=== PATIENT | female | born 1965 | race Caucasian/White ===

== ENCOUNTER 2017-05-23 08:36 | Day surgery (SDC) | payer OTHER ==
[~2017-05-23] VITALS: Ht 162.6 cm; Wt 102.1 kg
[~2017-05-23 08:36] MED LIST: AMIT50 PO; AMLO5 PO; ASPI81CH PO; ATOR10 PO; BACL10 PO; BUTASPCAFT PO; CHOL10002 PO; CLON1 PO; CYAN1000 PO; ESOM20 PO; FISH OIL 1,0001 EAC1 PO; FISH OIL 1,2001 EACH PO; FOLI1 PO; HYDCHL25 PO; K-Tab10 MEQ PO; LISI20 PO; MAGGLU250 PO; METO100 PO; METO50ER PO; Magnesium500 MG PO; Mobic15 MG PO; NAPR375 PO; Nexium40 MG PO; ONDA8 PO; ONDA8ODT MM; OXYGEN; Omeprazole20 M1 PO; PANT40 PO; POTASSIUM GLUCONATE PO; POTCHL10ER PO; RABE20 PO; SERT100 PO; SERT25 PO; SIMV10 PO; SUCR1SU PO; Sucralfate1 GM PO; TOPI50 PO; VARE1 PO; Zestril40 MG PO
[2018-02-24] MEDS ORDERED: Percocet 5-3251 EACH PO (15:19)
[2018-02-24] MEDS ORDERED: Cipro500 MG PO (16:10)
[2018-03-13] MEDS ORDERED: Imitrex50 MG PO (09:37)
[2018-03-13] MEDS ORDERED: PANT40 PO (09:42)
[2018-03-14] MEDS ORDERED: TOPI50 PO (11:10)
[2018-03-14] MEDS ORDERED: Hair, Skin & N1 EACH PO (11:13)
[2018-03-14] MEDS ORDERED: CHOL10002 PO (11:13)
[2018-03-14] MEDS ORDERED: HEARTBURN RELI150 MG PO (11:16)
== END 2017-05-23 23:01 | disposition home or self-care (01) ==
LOC: ORSCMMR 08:36
PROVIDERS: Internal Medicine Gastroenterology
PROC: 0DB68ZX Excision of Stomach, Via Natural or Artificial Opening Endoscopic, Diagnostic (ICD-10-PCS; principal; 2017-05-23 10:00)
DX: K29.70 Gastritis, unspecified, without bleeding (principal); K44.9 Diaphragmatic hernia without obstruction or gangrene; F32.9 Major depressive disorder, single episode, unspecified; E78.00 Pure hypercholesterolemia, unspecified; I10 Essential (primary) hypertension; Z79.899 Other long term (current) drug therapy
CPT/HCPCS: 88305; 88342; J7120

== ENCOUNTER 2018-06-10 13:44 | Emergency (ER) | payer OTHER ==
[~2018-06-10] VITALS: Ht 162.6 cm; Wt 106.6 kg
[~2018-06-10 13:44] MED LIST changes: +Cipro500 MG PO; +HEARTBURN RELI150 MG PO; +Hair, Skin & N1 EACH PO; +Imitrex50 MG PO; +Percocet 5-3251 EACH PO
[2018-06-10 14:16] LABS: BASOPHILS ABSOLUTE AUTO 0.07 K/mm3 (0.00-0.23); BASOPHILS PERCENT AUTO 1 % (0-2); EOSINOPHILS ABSOLUTE AUTO 0.31 K/mm3 (0.00-0.68); EOSINOPHILS PERCENT AUTO 4 % (0-6); Hematocrit 44.2 % (33.0-51.0); Hemoglobin 14.7 g/dL (11.5-16.0); IMMATURE GRAN ABSOLUTE AUTO 0.02 K/mm3 (0.00-0.10); IMMATURE GRAN PERCENT AUTO 0 % (0-1); LYMPHOCYTES ABSOLUTE AUTO 2.29 K/mm3 (0.84-5.20); LYMPHOCYTES PERCENT AUTO 26 % (21-46); MONOCYTES ABSOLUTE AUTO 0.71 K/mm3 (0.16-1.47); MONOCYTES PERCENT AUTO 8 % (4-13); Mean Corpuscular HGB 30.7 pg (26.0-34.0); Mean Corpuscular HGB Conc 33.3 g/dL (31.5-36.5); Mean Corpuscular Volume 92 fL (80-100); Mean Platelet Volume 9.8 fL (9.1-12.4); NEUTROPHILS ABSOLUTE AUTO 5.44 K/mm3 (1.96-9.15); NEUTROPHILS PERCENT AUTO 62 % (41-73); Platelet Count 287 K/mm3 (150-400); RDW Coefficient Variation 12.9 % (11.7-14.2); RDW Standard Deviation 43.8 fL (35.1-46.3); Red Blood Cell Count 4.79 M/mm3 (3.80-5.20); White Blood Cell Count 8.84 K/mm3 (4.00-11.30)
[2018-06-10 15:03] LABS: Source, Urine Clean Catch
[2018-06-10 15:08] LABS: Alanine Aminotransfer (ALT/SGP 19 U/L (12-78); Albumin/Globulin Ratio 0.8 (0.8-1.8); Alk Phos 104 U/L (50-136); Anion Gap 9 mmol/L (6-16); Aspartate Aminotrans (AST/SGOT 12 U/L (12-37); Bilirubin, Total 0.3 mg/dL (0.1-1.0); Blood Urea Nitrogen 9 mg/dL (8-24); Bun/Creatinine Ratio 10.4 (12.0-20.0); CO2, Blood 28 mmol/L (21-32); Calcium, Blood 8.5 mg/dL (8.5-10.1); Chloride, Blood 107 mmol/L (98-108); Creatinine, Blood 0.87 mg/dL (0.40-1.00); Globulin, Blood 3.7 g/dL (2.2-4.0); Glomerular Filtration Rate >60 (60-); Glucose, Blood 141 mg/dL (70-99); Potassium, Blood 3.2 mmol/L (3.5-5.5); Sodium, Blood 144 mmol/L (136-145); Total Protein, Blood 6.7 g/dL (6.4-8.2)
[2018-06-10 15:10] LABS: Bilirubin, Urine Neg (Neg); Blood, Urine Neg (Neg); Glucose Qualitative, Urine Neg (Neg); Ketones, Urine Neg (Neg); Leukocyte Esterase, Urine 2+ (Neg); Nitrite, Urine Neg (Neg); Protein, Urine Neg (Neg); Urobilinogen, Urine NORM (Normal)
[2018-06-10 15:26] LABS: Appearance, Urine Clear (Clear); Color, Urine Yellow (P-Yellow)
[2018-06-10 15:31] LABS: Bacteria Few /hpf; Red Blood Cells, Urine 0-2 /hpf (0-2); Squamous Epithelial Cells Few /hpf (Few)
[2018-06-10 15:44] LABS: Troponin I <0.015 ng/mL (0.000-0.040)
[2018-06-10 15:46] LABS: Thyroid Stimulating Hormone 0.643 uIU/mL (0.360-4.800)
== END 2018-06-10 16:18 | disposition home or self-care (01) ==
LOC: ER 13:44
PROVIDERS: Emergency Medicine
DX: E11.65 Type 2 diabetes mellitus with hyperglycemia (principal); I10 Essential (primary) hypertension; G43.909 Migraine, unspecified, not intractable, without status migrainosus; Z88.0 Allergy status to penicillin; Z88.5 Allergy status to narcotic agent; Z79.899 Other long term (current) drug therapy; Z87.891 Personal history of nicotine dependence
CPT/HCPCS: 36415; 80053; 81001; 82947; 83690; 84443; 84484; 85025; 87086; 99284

== ENCOUNTER → 2018-10-05 | Outpatient (CLI) | payer OTHER | END | disposition home or self-care (01) | LOC: LAB 18:02 → LAB SHORT 18:02 | DX: N39.0 Urinary tract infection, site not specified (principal) | CPT/HCPCS: 87077; 87086; 87186 ==

== ENCOUNTER → 2018-10-18 | Outpatient (CLI) | payer OTHER | END | disposition home or self-care (01) | LOC: LAB UCHC 13:11 → LAB SHORT 13:11 | DX: R35.0 Frequency of micturition (principal) | CPT/HCPCS: 87070; 87086; 87205 ==

== ENCOUNTER 2019-08-28 12:30 | Emergency (ER) | payer OTHER ==
[~2019-08-28] VITALS: Ht 162.6 cm; Wt 104.3 kg
[~2019-08-28 12:30] MED LIST changes: +THERA-D2000 UNIT PO
[2019-08-28] MEDS ORDERED: Atarax10 MG PO (12:56)
[2019-08-28] MEDS ORDERED: FAMO10 PO (12:56)
[2019-08-28 13:31] LABS: International Normalized Ratio 0.91; Prothrombin Time Results 9.8 Sec (9.7-11.5)
[2019-08-28 13:47] LABS: Alanine Aminotransfer (ALT/SGP 22 U/L (12-78); Albumin, Blood 3.2 g/dL (3.4-5.0); Albumin/Globulin Ratio 0.8 (0.8-1.8); Alk Phos 126 U/L (50-136); Anion Gap 6 mmol/L (6-16); Aspartate Aminotrans (AST/SGOT 18 U/L (12-37); Bilirubin, Total 0.2 mg/dL (0.1-1.0); Blood Urea Nitrogen 7 mg/dL (8-24); CO2, Blood 26 mmol/L (21-32); Calcium, Blood 8.8 mg/dL (8.5-10.1); Chloride, Blood 111 mmol/L (98-108); Creatinine, Blood 0.77 mg/dL (0.40-1.00); Glomerular Filtration Rate >60 (60-); Glucose, Blood 107 mg/dL (70-99); Potassium, Blood 3.6 mmol/L (3.5-5.5); Sodium, Blood 143 mmol/L (136-145); Total Protein, Blood 7.2 g/dL (6.4-8.2); Troponin I <0.015 ng/mL (0.000-0.040)
[2019-08-28 14:05] LABS: BASOPHILS ABSOLUTE AUTO 0.07 K/mm3 (0.00-0.23); BASOPHILS PERCENT AUTO 1 % (0-2); EOSINOPHILS ABSOLUTE AUTO 0.25 K/mm3 (0.00-0.68); EOSINOPHILS PERCENT AUTO 3 % (0-6); Hematocrit 48.3 % (33.0-51.0); Hemoglobin 15.8 g/dL (11.5-16.0); IMMATURE GRAN ABSOLUTE AUTO 0.02 K/mm3 (0.00-0.10); IMMATURE GRAN PERCENT AUTO 0 % (0-1); LYMPHOCYTES ABSOLUTE AUTO 2.66 K/mm3 (0.84-5.20); LYMPHOCYTES PERCENT AUTO 29 % (21-46); MONOCYTES ABSOLUTE AUTO 0.79 K/mm3 (0.16-1.47); MONOCYTES PERCENT AUTO 9 % (4-13); Mean Corpuscular HGB Conc 32.7 g/dL (31.5-36.5); Mean Corpuscular Volume 92 fL (80-100); Mean Platelet Volume 10.3 fL (9.1-12.4); NEUTROPHILS ABSOLUTE AUTO 5.37 K/mm3 (1.96-9.15); NEUTROPHILS PERCENT AUTO 59 % (41-73); Platelet Count 281 K/mm3 (150-400); RDW Coefficient Variation 12.8 % (11.7-14.2); RDW Standard Deviation 43.4 fL (35.1-46.3); Red Blood Cell Count 5.27 M/mm3 (3.80-5.20); White Blood Cell Count 9.16 K/mm3 (4.00-11.30)
[2019-08-28] MEDS ORDERED: Toprol Xl25 MG PO (15:43)
== END 2019-08-28 15:48 | disposition home or self-care (01) ==
LOC: ER 12:30
PROVIDERS: Physician Assistant
DX: R07.9 Chest pain, unspecified (principal); R00.2 Palpitations; I10 Essential (primary) hypertension; F17.290 Nicotine dependence, other tobacco product, uncomplicated; Z88.0 Allergy status to penicillin; Z88.5 Allergy status to narcotic agent; Z79.899 Other long term (current) drug therapy
CPT/HCPCS: 36415; 71046; 80053; 84484; 85025; 85610; 93005; 93010; 96374; 99285-25

== ENCOUNTER → 2019-11-29 | Outpatient (CLI) | payer OTHER ==
[~2019-11-29] MED LIST changes: +Atarax10 MG PO; +FAMO10 PO; +METO100ER; +Toprol Xl25 MG PO
== END | disposition home or self-care (01) ==
LOC: LAB UCHC 11:35 → LAB SHORT 11:35
DX: N39.0 Urinary tract infection, site not specified (principal)
CPT/HCPCS: 87086

== ENCOUNTER 2020-06-06 11:55 | Emergency (ER) | payer OTHER ==
[~2020-06-06] VITALS: Ht 162.6 cm; Wt 104.3 kg
[2020-06-06] MEDS ORDERED: PRAMIPEXOLE D0.25 M1 PO (12:42)
[2020-06-06] MEDS ORDERED: Bactrim Ds Tab1 EACH PO (13:35)
== END 2020-06-06 14:00 | disposition home or self-care (01) ==
LOC: ER 11:55
DX: L02.414 Cutaneous abscess of left upper limb (principal); F17.290 Nicotine dependence, other tobacco product, uncomplicated; Z79.899 Other long term (current) drug therapy
CPT/HCPCS: 10060; 87070; 87075; 87077; 87186; 87205; 99283-25

== ENCOUNTER 2021-05-19 08:00 | Day surgery (SDC) | payer OTHER ==
[~2021-05-19] VITALS: Ht 162.6 cm; Wt 109.5 kg
[~2021-05-19 08:00] MED LIST changes: +Bactrim Ds Tab1 EACH PO; -METO100ER; +METO100ER PO; +PRAMIPEXOLE D0.25 M1 PO
--- NOTE | 2021-05-19 09:36 | NUR ---
Ambulatory in Day Surgery Surgical site prepped with 2% Chlorhexidine cloth wipe. Estrella Paws warming gown applied. History, Chart, Medications and Allergies reviewed before start of procedure.Lungs clear T/O to Auscultation. Patient confirms NPO status and agrees with scheduled surgery. Pre-Op teaching done. Pt verbalizes understanding. Patient States Post-Procedure ride home has been arranged. Patient reports completing Chlorhexadine shower X2 prior to admission to hospital.
--- NOTE | 2021-05-19 13:45 | NUR ---
PT ARRIVED TO UNIT FROM PACU. VSS. ON 3L 02, LUNGS SOUND CLEAR W/DIM BASES. RESPIRATIONS E/U. HRR. PT ABLE TO WIGGLE TOES. JONAH WRAP TO LLE CDI. POLAR PACK IN PLACE. CALL LIGHT IN REACH.
--- NOTE | 2021-05-19 15:51 | NUR ---
THERAPY IN TO WORK W/PT.
--- NOTE | 2021-05-19 16:57 | NUR ---
turned over care to ANUP Burton RN
--- NOTE | 2021-05-19 18:07 | NUR ---
ASSUMED CARE OF PATIENT AT 1730. PATIENT CURRENTLY SITTING UP IN CHAIR EATING HER MEAL. NO SIGNS OR SYMPTOMS ACUTE DISTRESS NOTED. CALL LIGHT AND WATER IN EASY REACH. ABLE TO MAKE NEEDS AND WANTS KNOWN. WILL MONITOR.
[2021-05-20 04:50] LABS: BASOPHILS ABSOLUTE AUTO 0.04 K/mm3 (0.00-0.23); BASOPHILS PERCENT AUTO 0 % (0-2); EOSINOPHILS ABSOLUTE AUTO 0.03 K/mm3 (0.00-0.68); EOSINOPHILS PERCENT AUTO 0 % (0-6); Hematocrit 37.6 % (33.0-51.0); Hemoglobin 12.4 g/dL (11.5-16.0); IMMATURE GRAN ABSOLUTE AUTO 0.07 K/mm3 (0.00-0.10); IMMATURE GRAN PERCENT AUTO 1 % (0-1); LYMPHOCYTES ABSOLUTE AUTO 1.82 K/mm3 (0.84-5.20); LYMPHOCYTES PERCENT AUTO 12 % (21-46); MONOCYTES ABSOLUTE AUTO 1.42 K/mm3 (0.16-1.47); MONOCYTES PERCENT AUTO 9 % (4-13); Mean Corpuscular Volume 94 fL (80-100); Mean Platelet Volume 10.1 fL (9.1-12.4); NEUTROPHILS ABSOLUTE AUTO 11.71 K/mm3 (1.96-9.15); NEUTROPHILS PERCENT AUTO 78 % (41-73); Platelet Count 236 K/mm3 (150-400); RDW Standard Deviation 44.7 fL (35.1-46.3); White Blood Cell Count 15.09 K/mm3 (4.00-11.30)
--- NOTE | 2021-05-20 04:53 | NUR ---
SHIFT SUMMARY: PT POD#1 FOR A LEFT TKA. AQUACEL AND JONAH WRAP C/D/I WITH POLAR PACK IN PLACE. PAIN BEING MANAGED WITH 5MG OXY AND SCHEDULED TORADOL+TYLENOL. PT AMBULATING WELL WITH FWW/GB. PT TOLERATING PO-DENIES N/V. OOB TO BATHROOM SEVERAL TIMES AND VOIDING WELL. PLAN FOR PHYSICAL THERAPY TODAY AND POSSIBLE DISCHARGE HOME.
[2021-05-20 05:14] LABS: Calcium, Blood 8.4 mg/dL (8.5-10.1); Potassium, Blood 3.7 mmol/L (3.5-5.5)
[2021-05-20] MEDS ORDERED: Percocet 5-3251 EACH PO (08:32)
[2021-05-20] MEDS ORDERED: ASPI81CH PO (08:33)
--- NOTE | 2021-05-20 08:57 | NUR ---
05/20/21 0857 Essence Carrasco VERIFICATIONS: EDIT CHART.
--- NOTE | 2021-05-20 12:40 | NUR ---
DISCHARGE PT LEFT VIA WHEELCHAIR. PT CLEARED THERAPY, NO LIGHT HEADEDNESS WITH AMBULATION. DRESSING CDI. EXTRA AQUACELS GIVEN TO PATIENT. PRESCRIPTIONS PICKED UP BY BEFORE DISCHARGE. ALL INSTRUCTIONS GONE OVER WITH PATIENT. DECLINED FURTHER QUESTIONS. IV REMOVED PRIOR TO DISCHARGE
== END 2021-05-20 11:30 | disposition home or self-care (01) ==
LOC: ORSCMMR 08:00 → ORD 09:30 → SURS 13:26 → ORSCMMR 05-20 11:30 → ORD 05-26 09:45
PROVIDERS: Orthopaedic Surgery
PROC: 0SRD0JA Replacement of Left Knee Joint with Synthetic Substitute, Uncemented, Open Approach (ICD-10-PCS; principal; 2021-05-19 09:30)
DX: M17.12 Unilateral primary osteoarthritis, left knee (principal); I10 Essential (primary) hypertension; G47.33 Obstructive sleep apnea (adult) (pediatric); Z87.891 Personal history of nicotine dependence; K21.9 Gastro-esophageal reflux disease without esophagitis; E66.01 Morbid (severe) obesity due to excess calories; Z68.41 Body mass index [BMI] 40.0-44.9, adult; Z79.899 Other long term (current) drug therapy
CPT/HCPCS: 36415; 73560-LT; 80048; 85025; 97110; 97110-CQ; 97116; 97116-CQ; 97162; A9270; C1776; J0171; J0690; J0735; J1100; J1170; J1200; J1885; J2250; J2370; J2405; J2704; J2710; J2795; J3010; J3370; J7120

== ENCOUNTER → 2021-05-29 | Outpatient (CLI) | payer OTHER | END | disposition home or self-care (01) | LOC: LAB SHORT 16:24 | DX: N39.0 Urinary tract infection, site not specified (principal) | CPT/HCPCS: 87077; 87086; 87186 ==

== ENCOUNTER → 2021-07-22 | Outpatient (CLI) | payer OTHER ==
[2021-07-23 09:18] LABS: Candida species (DNA Probe) Negative (NEGATIVE); G. vaginalis (DNA Probe) Positive (NEGATIVE); T. vaginalis (DNA Probe) Negative (NEGATIVE)
== END | disposition home or self-care (01) ==
LOC: LAB 14:25 → LAB SHORT 14:25
PROVIDERS: Nurse Practitioner
DX: N89.8 Other specified noninflammatory disorders of vagina (principal); R82.998 Other abnormal findings in urine
CPT/HCPCS: 87086; 87480; 87510; 87660

== ENCOUNTER → 2021-10-26 | Outpatient (CLI) | payer OTHER | END | disposition home or self-care (01) | LOC: LAB 14:13 → LAB SHORT 14:13 | DX: R30.9 Painful micturition, unspecified (principal) | CPT/HCPCS: 87077; 87086; 87186 ==

== ENCOUNTER → 2022-03-16 | Outpatient (CLI) | payer OTHER ==
[2022-03-17 13:14] LABS: G. vaginalis (DNA Probe) Positive (NEGATIVE); T. vaginalis (DNA Probe) Negative (NEGATIVE)
[2022-03-17 13:15] LABS: Candida species (DNA Probe) Negative (NEGATIVE)
== END | disposition home or self-care (01) ==
LOC: LAB 13:24 → LAB SHORT 13:24
PROVIDERS: Registered Nurse Community Health
DX: N89.8 Other specified noninflammatory disorders of vagina (principal)
CPT/HCPCS: 87480; 87510; 87660

== ENCOUNTER → 2022-04-13 | Outpatient (CLI) | payer OTHER | LOC: LAB 12:20 → LAB SHORT 12:20 | DX: R35.0 Frequency of micturition (principal) | CPT/HCPCS: 87086 ==

== ENCOUNTER → 2023-05-24 | Outpatient (CLI) | payer OTHER ==
[~2023-05-24] MED LIST changes: +CEPH500 PO; +Pyridium100 MG PO
== END ==
LOC: LAB SHORT 14:37 → LAB 14:37
DX: N39.0 Urinary tract infection, site not specified (principal)
CPT/HCPCS: 87086

== ENCOUNTER → 2023-05-31 | Outpatient (CLI) | payer OTHER ==
[2023-05-31 19:24] LABS: BASOPHILS ABSOLUTE AUTO 0.08 K/mm3 (0.00-0.23); BASOPHILS PERCENT AUTO 1 % (0-2); EOSINOPHILS ABSOLUTE AUTO 0.27 K/mm3 (0.00-0.68); EOSINOPHILS PERCENT AUTO 3 % (0-6); Hematocrit 47.2 % (33.0-51.0); Hemoglobin 15.2 g/dL (11.5-16.0); IMMATURE GRAN ABSOLUTE AUTO 0.03 K/mm3 (0.00-0.10); IMMATURE GRAN PERCENT AUTO 0 % (0-1); LYMPHOCYTES ABSOLUTE AUTO 2.75 K/mm3 (0.84-5.20); LYMPHOCYTES PERCENT AUTO 25 % (21-46); MONOCYTES ABSOLUTE AUTO 0.86 K/mm3 (0.16-1.47); MONOCYTES PERCENT AUTO 8 % (4-13); Mean Corpuscular HGB 30.4 pg (26.0-34.0); Mean Corpuscular HGB Conc 32.2 g/dL (31.5-36.5); Mean Corpuscular Volume 94 fL (80-100); Mean Platelet Volume 10.6 fL (9.1-12.4); NEUTROPHILS ABSOLUTE AUTO 6.89 K/mm3 (1.96-9.15); NEUTROPHILS PERCENT AUTO 63 % (41-73); Platelet Count 315 K/mm3 (150-400); RDW Coefficient Variation 12.9 % (11.7-14.2); RDW Standard Deviation 44.5 fL (35.1-46.3); White Blood Cell Count 10.88 K/mm3 (4.00-11.30)
[2023-06-02 14:12] LABS: CALCIUM, SERUM 9.2 mg/dL (8.7-10.2); CREATININE, SERUM 1.13 mg/dL (0.57-1.00); POTASSIUM, SERUM 3.5 mmol/L (3.5-5.2)
== END | disposition home or self-care (01) ==
LOC: LAB SHORT 17:56
PROVIDERS: Family Medicine
DX: N39.0 Urinary tract infection, site not specified (principal); R10.9 Unspecified abdominal pain; R30.0 Dysuria; R31.9 Hematuria, unspecified; R73.03 Prediabetes; Z87.442 Personal history of urinary calculi
CPT/HCPCS: 83036; 85025; 87086

== ENCOUNTER 2023-06-12 13:07 | Emergency (ER) | payer OTHER ==
[~2023-06-12] VITALS: Ht 162.6 cm; Wt 99.8 kg
[2023-06-12 13:23] VITALS: BP 129/84
[2023-06-12 14:34] LABS: Source, Urine Clean Catch
[2023-06-12 14:44] LABS: Bilirubin, Urine Neg (Neg); Blood, Urine Neg (Neg); Color, Urine Yellow (P-Yellow); Glucose Qualitative, Urine Neg (Neg); Ketones, Urine Neg (Neg); Leukocyte Esterase, Urine 3+ (Neg); Nitrite, Urine Neg (Neg); Protein, Urine Neg (Neg); Urobilinogen, Urine NORM (Normal)
[2023-06-12 14:52] LABS: Appearance, Urine Hazy (Clear)
[2023-06-12 14:53] LABS: Bacteria Many /hpf; Red Blood Cells, Urine 0-2 /hpf (0-2); Squamous Epithelial Cells Rare /hpf (Few); Transitional Epithelial Cells Rare /hpf (0-Rare)
[2023-06-12] MEDS ORDERED: SULTRIDS PO (16:04)
[2023-06-12] MEDS ORDERED: Pyridium100 MG PO (16:04)
[2023-06-12] MEDS ORDERED: Ibuprofen 400 MG Tab PO ONE (16:05)
[2023-06-12] MEDS ORDERED: Trimethoprim/Sulfamethoxazole DS Tab PO ONE (16:05)
== END 2023-06-12 16:10 | disposition home or self-care (01) ==
LOC: ER 13:07
PROVIDERS: Physician Assistant
DX: N39.0 Urinary tract infection, site not specified (principal); J02.9 Acute pharyngitis, unspecified; I10 Essential (primary) hypertension; G43.909 Migraine, unspecified, not intractable, without status migrainosus; F17.290 Nicotine dependence, other tobacco product, uncomplicated; Z79.82 Long term (current) use of aspirin; Z79.899 Other long term (current) drug therapy; Z88.0 Allergy status to penicillin; Z88.5 Allergy status to narcotic agent
CPT/HCPCS: 81001; 87077; 87086; 87186; 99283; A9270

== ENCOUNTER 2024-02-15 06:58 | Day surgery (SDC) | payer OTHER ==
[~2024-02-15] VITALS: Ht 162.6 cm; Wt 102.4 kg
[~2024-02-15 06:58] MED LIST changes: +ATOR40TA; +DOCU100; +FAMO20; +Lactated Ringer's 1,000 ML IV SCH; +NS 500 ML IV SCH; +POKONZA10 MEQ PO; +POTA20LUD PO; +SPIR50 PO; +SULTRIDS PO; +TOPI100 PO
[2024-02-15 08:20] VITALS: BP 164/69
--- NOTE | 2024-02-15 08:30 | NUR ---
History, Chart, Medications and Allergies reviewed before start of procedure. Pre-Op teaching done. Pt verbalizes understanding. Patient states colon prep results LT YELLOW. PT HAS EARRING IN R EAR THAT IS UNABLE TO BE REMOVED. PT STATES SHE HAS DENTURES IN BOTH UPPER AND LOWER BUT THEY ARE GLUED IN AND UNABLE TO BE REMOVED.
[2024-02-15] MEDS ORDERED: Benzocaine Oral Spray 0.5ML UD ONE (08:40)
[2024-02-15] MEDS ORDERED: propofoL 60 ML IV ONE (08:41)
--- NOTE | 2024-02-15 08:41 | NUR ---
02/15/24 [address] BHANDARI; SEE ANESTHESIA RECORDS.
[2024-02-15] MEDS ORDERED: propofoL 20 ML IV ONE ×2 (09:22→09:39)
[2024-02-15 09:45] VITALS: BP 109/72
--- NOTE | 2024-02-15 09:45 | NUR ---
PT TO DAY SURGERY STEP DOWN FROM EGD AND COLONOSCOPY; BEDSIDE REPORT RECEIVED. PT IS AWAKE, ALERT AND ORIENTED; ABLE TO MOVE SELF IN BED. VSS. PT REQUESTING PO FLUIDS, THROAT IS A LITTLE SORE.
[2024-02-15 10:00] VITALS: BP 122/71
--- NOTE | 2024-02-15 10:05 | NUR ---
PT TOLERATING PO FLUIDS WELL. STATES THROAT IS FEELING LESS SORE.
--- NOTE | 2024-02-15 10:05 | NUR ---
DR FLYNN AT BEDSIDE DISCUSSING PLAN OF CARE WITH PT. PLAN FOR PT TO KEEP FOLLOW UP APPOINTMENT AND WILL REFER PT TO [facility] FOR NEXT COLONOSCOPY.
--- NOTE | 2024-02-15 10:12 | NUR ---
Discharge instructions reviewed with patient. Patient verbalizes understanding. Copy given to patient to take home. Patient States Post-Procedure ride home has been arranged.
--- NOTE | 2024-02-15 10:20 | NUR ---
Patient up to Ambulate independently. Gait steady. Up to bathroom to void Discharged via wheelchair to private car for ride home.
== END 2024-02-15 10:21 | disposition home or self-care (01) ==
LOC: ORSCMMR 06:58 → ORD 08:30 → ORSCMMR 08:30
PROVIDERS: Internal Medicine Gastroenterology
PROC: 0DB78ZX Excision of Stomach, Pylorus, Via Natural or Artificial Opening Endoscopic, Diagnostic (ICD-10-PCS; principal; 2024-02-15 08:30)
PROC: 0DB48ZX Excision of Esophagogastric Junction, Via Natural or Artificial Opening Endoscopic, Diagnostic (ICD-10-PCS; principal; 2024-02-15 08:30)
PROC: 0DBH8ZX Excision of Cecum, Via Natural or Artificial Opening Endoscopic, Diagnostic (ICD-10-PCS; principal; 2024-02-15 08:30)
PROC: 0DBM8ZX Excision of Descending Colon, Via Natural or Artificial Opening Endoscopic, Diagnostic (ICD-10-PCS; principal; 2024-02-15 08:30)
PROC: 0DBK8ZX Excision of Ascending Colon, Via Natural or Artificial Opening Endoscopic, Diagnostic (ICD-10-PCS; principal; 2024-02-15 08:30)
DX: K22.70 Barrett's esophagus without dysplasia (principal); K21.9 Gastro-esophageal reflux disease without esophagitis; K29.70 Gastritis, unspecified, without bleeding; D12.2 Benign neoplasm of ascending colon; D12.0 Benign neoplasm of cecum; D12.4 Benign neoplasm of descending colon; G47.33 Obstructive sleep apnea (adult) (pediatric); Z99.81 Dependence on supplemental oxygen; E66.9 Obesity, unspecified; Z68.39 Body mass index [BMI] 39.0-39.9, adult; I10 Essential (primary) hypertension; F32.A Depression, unspecified; F41.9 Anxiety disorder, unspecified; Z79.899 Other long term (current) drug therapy; Z86.73 Personal history of transient ischemic attack (TIA), and cerebral infarction without residual deficits; F17.290 Nicotine dependence, other tobacco product, uncomplicated
CPT/HCPCS: 88305; 88342; A9270; J2704; J7040

== ENCOUNTER 2024-12-11 07:30 | Inpatient (IN) | payer OTHER ==
[~2024-12-11] VITALS: Ht 162.6 cm; Wt 106.8 kg
[~2024-12-11 07:30] MED LIST changes: +ALBU90OI INH; +AMITRIPTYLINE150 M1 PO; -ATOR40TA; +ATOR40TA PO; -FAMO20; +FAMO20 PO; +IMITREX50 M1 PO; -Lactated Ringer's 1,000 ML IV SCH; +MAG GLYCINATE100 MG PO; +MAGNESIUM OXID500 MG PO; +NITR.4SL SL; -NS 500 ML IV SCH; +NYSTATIN15 GM TOP; +ONDA4 PO; +POTCHL20ER PO; +TAMS.4ER PO
[2024-12-19] VITALS (21 sets, daily range): BP systolic 105–164; BP diastolic 78–103
[2024-12-19] MEDS ORDERED: MetroNIDAZOLE 500MG/NS 100 ml 100 ML IV SCH (08:35)
[2024-12-19] MEDS ORDERED: Heparin Sodium,Porcine 5,000 UNIT/0.5 ML SDV SC SCH (08:35)
[2024-12-19] MEDS ORDERED: CeFAZolin Sodium 2,000 MG in NS 100 ML IV SCH (08:35)
--- NOTE | 2024-12-19 09:15 | NUR ---
AMBULATORY INTO SDS.PT DENIES PAIN, BUT REPORTS FEELING ANXIOUS. HISTORY AND ALLERGIES REVIEWED. LUNGS CLEAR NO NOTED SOB. SATS>90% ON RA. NPO STATUS CONFIRMED. PT STATES THAT SHE COMPLETED HER BOWEL PREP.
[2024-12-19] MEDS ORDERED: HYDROmorphone HCl/Pf 1MG SYR IV PRN ×2 (09:40→17:10)
[2024-12-19] MEDS ORDERED: FentaNYL Citrate 50 MCG/ML 2 ML Injection IV PRN ×2 (09:45)
[2024-12-19] MEDS ORDERED: Prochlorperazine Edisylate 10 mg Vial IV PRN (09:45)
[2024-12-19] MEDS ORDERED: Ondansetron HCl 2 MG / ML 2ML Vial IV PRN ×2 (09:45→17:10)
[2024-12-19] MEDS ORDERED: Albuterol 2.5 MG/3 ML VIAL INH PRN (09:45)
[2024-12-19] MEDS ORDERED: Bupivacaine 0.5% HCl 5 MG/ML 30MLVIAL ONE (11:32)
--- NOTE | 2024-12-19 12:11 | NUR ---
1156-CARLY LOPEZ AT BEDSIDE. TIME OUT COMPLETED FOR ERECTOR SPINAE PLANE BLOCK. 1157 START. 1206 END TIME. CONTINUOUS SPO2 & HR MONITOR. O2 @ 2 LITERS NASAL CANULA. PT GIVEN VERSED PER CARLY LOPEZ CRNA-SEE ANESTHESIA RECORD.
[2024-12-19] MEDS ORDERED: MetroNIDAZOLE 500MG/NS 100 ml 100 ML IV ONE (16:00)
[2024-12-19] MEDS ORDERED: Albuterol 2.5 MG/3 ML VIAL ONE (17:04)
[2024-12-19] MEDS ORDERED: HYDROmorphone HCl/Pf 1MG SYR ONE (17:15)
[2024-12-19] MEDS ORDERED: FentaNYL Citrate 50 MCG/ML 2 ML Injection ONE (17:20)
[2024-12-19] MEDS ORDERED: Ondansetron HCl 2 MG / ML 2ML Vial ONE (17:20)
--- NOTE | 2024-12-19 18:13 | NUR ---
PT ARRIVED TO UNIT FROM PACU TRANSFERRED PT FROM [facility] TO BED. 02 SATS 95% ON 4L NC. PT VERY DROWSY, FALLS ASLEEP IN MIDDLE OF ANSWERING QUESTIONS. LAP INSCISIONS TO ABD X4 CDI. ABD APPEARS SLIGHTLY DISTENDED. LFA SLIGHTLY PUFFY IN APPEARANCE. QUANTITATIVE CONSULTANT REPORTED IV TO LFA INFILTRATED DURING SURGERY. ORIENTED PT TO CALL LIGHT. BED ALARM ON FOR SAFETY D/T SLEEPINESS DURING INSTRUCTION. CALL LIGHT IN REACH. SPOUSE BEDSIDE.
[2024-12-20 02:26] VITALS: BP 153/86
[2024-12-20 05:15] LABS: Hematocrit 43.0 % (33.0-51.0); Hemoglobin 14.3 g/dL (11.5-16.0); Mean Corpuscular HGB Conc 33.3 g/dL (31.5-36.5); Mean Corpuscular Volume 93 fL (80-100); NRBC ABSOLUTE 0.00 K/mm3 (0.00-0.02); NRBC Auto 0.0 /100 WBC (0.0-0.2); Platelet Count 229 K/mm3 (150-400); RDW Coefficient Variation 12.6 % (11.7-14.2); RDW Standard Deviation 42.9 fL (35.1-46.3)
[2024-12-20 05:16] VITALS: BP 140/75
[2024-12-20 05:40] LABS: Anion Gap 10.0 mmol/L (3-11); Blood Urea Nitrogen 13.0 mg/dL (8-24); CO2, Blood 23.0 mmol/L (21-32); Calcium, Blood 7.9 mg/dL (8.5-10.1); Chloride, Blood 107.0 mmol/L (98-108); Creatinine, Blood 0.81 mg/dL (0.40-1.00); Glucose, Blood 141.0 mg/dL (70-99); Magnesium, Blood 1.7 mg/dL (1.6-2.4); Potassium, Blood 3.5 mmol/L (3.5-5.5); Sodium, Blood 136.0 mmol/L (136-145)
--- NOTE | 2024-12-20 06:01 | NUR ---
SHIFT SUMMARY NOC. PT POD 1 FOR RIGHT HEMICOLECTOMY. PT'S LAP SITES X4 C/D/I. PT DROWSY AT BEDSIDE REPORT BUT MORE ALERT, AWAKE AT TIME OF ASSESSMENT AND T/O NIGHT. PT'S PAIN DIFFICULT TO CONTROL AT TIMES, PT MEDICATED PER EMAR, PAIN IMPROVED WITH KPAD. PT VOIDING URINE AND TOLERATING CLEAR LIQUID DIET. PT AMBULATES WITH SBA. CALL LIGHT IN REACH.
[2024-12-20 07:09] VITALS: BP 146/87
[2024-12-20] MEDS ORDERED: Enoxaparin 40 MG/0.4 ML SYR SC SCH (09:00)
[2024-12-20] MEDS ORDERED: Albuterol HFA200 ACT/6.7 GM INH INH PRN (11:55)
[2024-12-20 14:43] VITALS: BP 155/89
--- NOTE | 2024-12-20 15:45 | NUR ---
SHIFT SUMMARY S/P R HEMICOLECTOMY. LAP SITES TO ABD REMAIN CDI. PT REPORTS SMALL AMOUNT OF FLATUS. PT INDEP TO RESTROOM. PT SLOWLY FUENTES FULL LIQ DIET, BUT REPORTS SHE IS NOT READY TO ADVANCE TO REGULAR DIET YET--ORDERS TO ADVANCE DIET TOLERATED. PT COMPLAINING OF A MIGRAINE HEADACHE--IMITREX + TYLENOL PRN. ROXICODONE FOR ABD PAIN CONTROL. PT USES CALL LIGHT APPROPRIATELY.
--- NOTE | 2024-12-20 16:40 | NUR ---
PT REPORTS NAUSEA X1. NO EMESIS. MEDICATED PER EMAR. PT REPORTS NO FLATUS SINCE THIS MORNING. ENCOURAGING AMBULATION.
--- NOTE | 2024-12-20 18:06 | NUR ---
Pt. is awake in bed and welcomes my visit. Pt. is pleasant but does display evidence of abdominal discomfort. Facilitate a life review and listen with empathy and a calming presence. Pt. verbalizes about her family and her robert. A measure of rapport is established during the lengthy life review. Pt. displayed evidence of trust and engagement. Prayed with the Pt. Pt. 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
[2024-12-20 19:11] VITALS: BP 161/85
[2024-12-20 22:43] VITALS: BP 158/75
[2024-12-21 04:15] VITALS: BP 141/62
[2024-12-21 04:52] LABS: Hematocrit 41.5 % (33.0-51.0); Hemoglobin 14.1 g/dL (11.5-16.0); Mean Corpuscular HGB Conc 34.0 g/dL (31.5-36.5); Mean Corpuscular Volume 93 fL (80-100); NRBC ABSOLUTE 0.00 K/mm3 (0.00-0.02); NRBC Auto 0.0 /100 WBC (0.0-0.2); Platelet Count 273 K/mm3 (150-400); RDW Coefficient Variation 12.9 % (11.7-14.2); RDW Standard Deviation 43.8 fL (35.1-46.3)
--- NOTE | 2024-12-21 05:37 | NUR ---
SHIFT SUMMARY NOC. PT POD 2 FOR RIGHT HEMICOLECTOMY. PT'S LAP SITES X4 ARE C/D/I ASIDE FROM SOME BRUISING. PT A/O X4, AMBULATES TO BATHROOM WITH SBA. BED ALARM SET FOR SAFETY AFTER MEDICATED FOR PAIN WITH DILAUDID. PT PAINFUL THIS SHIFT AND MEDICATED PER EMAR. PT VOIDING URINE AND TOLERATING CLEARS AND SOME FULL LIQUIDS. PT REPORTED NAUSEA AND MEDICATED WITH RELIEF OF SX. NO VOMIT EPISODES. CALL LIGHT IN REACH.
[2024-12-21 07:13] VITALS: BP 145/72
[2024-12-21] MEDS ORDERED: Cholecalciferol 1000 Unit Tablet (=25MCG) PO SCH (09:00)
[2024-12-21] MEDS ORDERED: DOCU100 PO (10:17)
[2024-12-21] MEDS ORDERED: LOSA25 PO (10:18)
[2024-12-21] MEDS ORDERED: Polyethylene Glycol 3350 17 gm PO PRN (12:55)
--- NOTE | 2024-12-21 13:43 | NUR ---
ASSUMED CARE OF PT @7255
--- NOTE | 2024-12-21 13:46 | NUR ---
REPORT TO AARON TAPIA TO ASSUME CARE. PATIENT IS POD 2 HEMICOLLECTOMY. X4 LAP SITES WITH WOUND GLUE, BIOPROCESSING MANUFACTURING TECHNICIAN C/D/I. REPORTS PASSING FLATUS, VOIDING, TOLERATING REG DIET. PATIENT IS IND, AND UP WALKING HALS, SHOWER TODAY. VSS. CALLS APPROPRIATLY.
--- NOTE | 2024-12-21 15:20 | NUR ---
Pt. is awake inbed and welcomes my visit. Pt. is pleasant and verbalizes that she is feeling better than yesterday. Facilitated other life story for a lengthy about of time. Pt. displayed evidence of being encouraged and welcomed prayer. Prayed with pt. Pt. verbalized gratitude for the spiritual care visit and shook this dot etcher apprentice's hand.
--- NOTE | 2024-12-21 17:14 | NUR ---
SUMMARY POST ASSUMPTION OF CARE - NO ACUTE CHANGES. PT AMBULATING AROUND UNIT. RESTING POST PAIN MEDICATION ADMINISTRATION R/T MIGRAINE AND ABD PAIN. LAP SITES X4 CDI - BRUISING NOTED BUT NO ACTIVE BLEEDING. ON 2LNC - PT STATES THIS HELPS WITH HER MIGRAINES. OTHERWISE, PT USING CALL LIGHT APPROPRIATELY. VOIDING WELL. NO FLATUS/BM AND BT'S NEGATIVE AT THIS TIME. TOLERATING PO INTAKE.
[2024-12-21 19:25] VITALS: BP 151/80
--- NOTE | 2024-12-22 04:28 | NUR ---
SHIFT SUMMARY S/P SBO. VSS. PT REPORTS INCREASED N/V THIS AM DESPITE MEDICATION PER EMAR. VOIDING. REPORTS PASSING FLATUS x2, NO BM. AMB IND. PT REPORTS INCREASED PAIN OVERNIGHT R/T MIGRAINE. PT RESTLESS T/O NIGHT. CALL LIGHT IN REACH, BED IN LOWEST POSITION, WILL REPORT TO DAY RN.
[2024-12-22 05:02] VITALS: BP 151/81
--- NOTE | 2024-12-22 05:20 | NUR ---
DR CONSULT DR NOTIFIED OF PT EMESIS x1 HR. NEW ORDER FOR REGLAN PLACED PER EMAR.
[2024-12-22] MEDS ORDERED: Metoclopramide HCl 5MG / ML 2ML Vial IV PRN (05:30)
[2024-12-22 07:30] VITALS: BP 154/85
[2024-12-22 13:34] VITALS: BP 136/88
[2024-12-22 14:13] VITALS: BP 151/78
[2024-12-22] MEDS ORDERED: NS 1,000 ML IV SCH (16:00)
--- NOTE | 2024-12-22 18:10 | NUR ---
PATIENT IS ALERT AND ORIENTED AND COOPERATIVE WITH CARE. ON RA. C/O N/V OFF AND ON ALL SHIFT. SHE WAS ABLE TO REST BETWEEN N/V SPELLS. MEDICATED PER EMAR. HER WAS AT THE BEDSIDE TODAY. PT WAS ENCOURAGED BY THE RN AND DR. RESTREPO TO AMBULATE TO HELP WAKE UP HER BOWELS, SHE REFUSED OVER AND OVER AGAIN. SHE DID GET INTO THE RECLINER TWICE WHEN HER SHEETS NEEDED CHANGED. POSITVE FLATUS, NO BM. NO C/O ABD PAIN. NS RUNNING AT 150/HR. ALL 4 LAP SITE ARE CLOSED, NO DRAINAGE. BRUISING AROUND THE LOWEST LAP SITE. SHE WAS ABLE TO KEEP ONE PO [place] MEDCIATION DOWN THIS MORNING BUT REFUSED ALL OTHER PO MORNING MEDS THAT WERE DUE. SHE TRIED SOME 7UP THIS EVENING, SEEMS TO AVE KEPT IT DOWN THUS FAR. IND TO THE BATHROOM TO VOID. WILL CONTINUE TO MONITOR
[2024-12-22 19:12] VITALS: BP 134/65
[2024-12-23] MEDS ORDERED: Pantoprazole Sodium 40 MG Injection IV SCH ×2 (02:05→16:30)
--- NOTE | 2024-12-23 03:20 | NUR ---
SHIFT SUMMARY PT POD 4 HEMICOLECTOMY. 4 LAP SITES C/D/I WITH MODERATE BRUISING. A&O X4. PT C/O NAUSEA THROUGHOUT SHIFT. MEDICATED PER EMAR. PT REPORTS PASSING FLATUS. TOLERATING CLEAR LIQUIDS. PT REFUSED PO MEDICATIONS DUE TO N&V. INDEPENDENT IN ROOM WITH FWW. NS RUNNING 150ML/HR. VOIDED 200ML W/ 154ML POST RESIDUAL VOID. CARE PLAN ONGOING.
[2024-12-23 03:45] VITALS: BP 122/70
[2024-12-23 05:18] LABS: BASOPHILS ABSOLUTE AUTO 0.05 K/mm3 (0.00-0.23); BASOPHILS PERCENT AUTO 1 % (0-2); EOSINOPHILS ABSOLUTE AUTO 0.12 K/mm3 (0.00-0.68); EOSINOPHILS PERCENT AUTO 1 % (0-6); Hematocrit 38.6 % (33.0-51.0); Hemoglobin 12.8 g/dL (11.5-16.0); IMMATURE GRAN ABSOLUTE AUTO 0.05 K/mm3 (0.00-0.10); IMMATURE GRAN PERCENT AUTO 1 % (0-1); LYMPHOCYTES ABSOLUTE AUTO 1.39 K/mm3 (0.84-5.20); LYMPHOCYTES PERCENT AUTO 13 % (21-46); MONOCYTES ABSOLUTE AUTO 1.50 K/mm3 (0.16-1.47); MONOCYTES PERCENT AUTO 14 % (4-13); Mean Corpuscular HGB Conc 33.2 g/dL (31.5-36.5); Mean Corpuscular Volume 93 fL (80-100); NEUTROPHILS ABSOLUTE AUTO 7.35 K/mm3 (1.96-9.15); NEUTROPHILS PERCENT AUTO 70 % (41-73); NRBC ABSOLUTE 0.00 K/mm3 (0.00-0.02); NRBC Auto 0.0 /100 WBC (0.0-0.2); Platelet Count 268 K/mm3 (150-400); RDW Coefficient Variation 13.0 % (11.7-14.2); RDW Standard Deviation 44.8 fL (35.1-46.3)
[2024-12-23 05:42] LABS: Alanine Aminotransfer (ALT/SGP 23.0 U/L (12-78); Albumin, Blood 2.1 g/dL (3.4-5.0); Albumin/Globulin Ratio 0.6 (0.8-1.8); Anion Gap 8.0 mmol/L (3-11); Aspartate Aminotrans (AST/SGOT 18.0 U/L (12-37); Bilirubin, Total 0.4 mg/dL (0.1-1.0); Blood Urea Nitrogen 15.0 mg/dL (8-24); CO2, Blood 24.0 mmol/L (21-32); Calcium, Blood 7.8 mg/dL (8.5-10.1); Chloride, Blood 109.0 mmol/L (98-108); Creatinine, Blood 0.79 mg/dL (0.40-1.00); Globulin, Blood 3.8 g/dL (2.2-4.0); Glucose, Blood 135.0 mg/dL (70-99); Potassium, Blood 3.4 mmol/L (3.5-5.5); Sodium, Blood 138.0 mmol/L (136-145); Total Protein, Blood 5.9 g/dL (6.4-8.2)
[2024-12-23 07:27] VITALS: BP 120/60
[2024-12-23 15:00] VITALS: BP 123/64
[2024-12-23] MEDS ORDERED: Metoprolol Tartrate 1 MG/ML 5 ML VIAL IV PRN ×2 (16:35)
--- NOTE | 2024-12-23 17:47 | NUR ---
SHIFT SUMMARY PATIENT IS AOX4, SBA/IND TO BATHROOM AND IN HALLS. SHOWER TODAY, UNABLE TO TAKE PILLS DUE TO NAUSEA. IV PROTONIX AND PRN NAUSEA MEDS ADMINISTERED.ABD MILDLY DISTENDED. PATIENT DOES REPORT PASSING FLATUS AND ONE SMALL BM TODAY.LAP SITES ARE GINA AND C/D/I. BRUISING NOTED TO SITES. PATIENT IS ADVANCED TO FULL LIQ DIET TOLERATING SIPS. VSS, ABLE TO MAKE NEEDS KNOWN.
[2024-12-23 19:19] VITALS: BP 128/70
[2024-12-24 03:21] VITALS: BP 113/57
--- NOTE | 2024-12-24 04:55 | NUR ---
SHIFT SUMMARY PT POD 5 HEMICOLECTOMY. 4 LAP SITES C/D/I WITH MODERATE BRUISING. A&O X4. PT C/O RUQ PAIN AND NAUSEA THROUGHOUT SHIFT. PT MEDICATED PER EMAR. PT REPORTS LOOSE BM X2 AND PASSING FLATUS. PT TOLERATING LIQUIDS. PT REFUSED PO MEDICATIONS DUE TO NAUSEA. INDEPENDENT IN ROOM WITH FWW. POTASSIUM/NORMAL SALINE RUNNING AT 100ML/HR. CARE PLAN ONGOING.
[2024-12-24 04:57] LABS: Albumin, Blood 1.9 g/dL (3.4-5.0); Anion Gap 9 mmol/L (3-11); Blood Urea Nitrogen 11 mg/dL (8-24); CO2, Blood 22 mmol/L (21-32); Calcium, Blood 7.5 mg/dL (8.5-10.1); Chloride, Blood 113 mmol/L (98-108); Creatinine, Blood 0.68 mg/dL (0.40-1.00); Glucose, Blood 114 mg/dL (70-99); Magnesium, Blood 1.7 mg/dL (1.6-2.4); Phosphorus, Blood 1.9 mg/dL (2.5-4.9); Potassium, Blood 3.5 mmol/L (3.5-5.5); Sodium, Blood 140 mmol/L (136-145)
[2024-12-24 07:30] VITALS: BP 127/62
[2024-12-24] MEDS ORDERED: Potassium Phosphate Dibasic 30 MM in Dextrose 5% 500 ML IV STA (13:49)
[2024-12-24 14:43] VITALS: BP 133/69
--- NOTE | 2024-12-24 18:36 | NUR ---
SHIFT SUMMARY; ASSUMED CARE AT 0700. A/A/OX4. INDEPENDANT TO RESTROM. DIET ADVANCED BY DR. NIXON TODAY. DENIES NAUSEA. LAP SITES C/D/I. ABD SOFT, NORMAL BOWEL TONES X4 QUADS. VSS, ENCOURAGED MOVEMENT TODAY, REPORTS PASSING GAS AND HAVING BM. WILL CONTINUE TO MONITOR AND TREAT UNTIL REPORT GIVEN TO NOC SHIFT RN.
[2024-12-24 18:38] VITALS: BP 137/62
[2024-12-25 03:19] VITALS: BP 128/62
[2024-12-25 05:56] LABS: Hematocrit 33.7 % (33.0-51.0); Hemoglobin 10.9 g/dL (11.5-16.0); Mean Corpuscular HGB Conc 32.3 g/dL (31.5-36.5); Mean Corpuscular Volume 95 fL (80-100); NRBC ABSOLUTE 0.00 K/mm3 (0.00-0.02); NRBC Auto 0.0 /100 WBC (0.0-0.2); Platelet Count 235 K/mm3 (150-400); RDW Coefficient Variation 13.4 % (11.7-14.2); RDW Standard Deviation 47.0 fL (35.1-46.3)
[2024-12-25 06:34] LABS: Albumin, Blood 1.9 g/dL (3.4-5.0); Anion Gap 7 mmol/L (3-11); Blood Urea Nitrogen 6 mg/dL (8-24); CO2, Blood 27 mmol/L (21-32); Calcium, Blood 8.0 mg/dL (8.5-10.1); Chloride, Blood 110 mmol/L (98-108); Creatinine, Blood 0.74 mg/dL (0.40-1.00); Glucose, Blood 93 mg/dL (70-99); Phosphorus, Blood 3.1 mg/dL (2.5-4.9); Potassium, Blood 3.2 mmol/L (3.5-5.5); Sodium, Blood 141 mmol/L (136-145)
--- NOTE | 2024-12-25 06:34 | NUR ---
NOC SUMMARY- PT PAIN MANAGED WELL. PT DENIES NAUSEA THIS SHIFT AND HAS BEEN ABLE TO TOLERATE PO INTAKE. PT IS VOIDING AND PASSING GAS. PT AMBULATORY TO BATHROOM. PT LAP SITES ARE C/D/I W/ OLD BRUISING NOTED. PT IS TURNING SELF IN BED. PT USING O2 VIA NC WHILE SLEEPING TO MAINTAIN SPO2 >90%. PT ON CONTINOUS SPO2 MONITORING.
[2024-12-25 07:27] VITALS: BP 116/65
[2024-12-25] MEDS ORDERED: NS 250 ML IV PRN (07:55)
[2024-12-25] MEDS ORDERED: OXAYDO5 M2 PO (12:22)
[2024-12-25 12:48] VITALS: BP 132/69
--- NOTE | 2024-12-25 13:30 | NUR ---
DISCHARGE: PACKET PRINTED AND PT EDUCATED. IV DC'D WNL TIP INTACT. PT LEFT UNIT AT ABOUT 1315
== END 2024-12-25 13:15 | disposition home or self-care (01) | DRG 330 ==
LOC: SURS 12-19 08:24 → MEDS 12-19 08:24 → SURS 12-19 18:00
PROVIDERS: Internal Medicine; Surgery; ADMIT Student in an Organized Health Care Education/Training Program
PROC: 8E0W4CZ Robotic Assisted Procedure of Trunk Region, Percutaneous Endoscopic Approach (ICD-10-PCS; 2024-12-19)
PROC: 0DTF4ZZ Resection of Right Large Intestine, Percutaneous Endoscopic Approach (ICD-10-PCS; principal; 2024-12-19 10:00)
DX: D12.6 Benign neoplasm of colon, unspecified (principal); K56.0 Paralytic ileus; Z68.41 Body mass index [BMI] 40.0-44.9, adult; K21.9 Gastro-esophageal reflux disease without esophagitis; I10 Essential (primary) hypertension; E78.5 Hyperlipidemia, unspecified; F41.9 Anxiety disorder, unspecified; M19.90 Unspecified osteoarthritis, unspecified site; I25.10 Atherosclerotic heart disease of native coronary artery without angina pectoris; G43.909 Migraine, unspecified, not intractable, without status migrainosus; F32.A Depression, unspecified; E66.01 Morbid (severe) obesity due to excess calories; E87.6 Hypokalemia; E83.39 Other disorders of phosphorus metabolism; G47.33 Obstructive sleep apnea (adult) (pediatric); Z80.1 Family history of malignant neoplasm of trachea, bronchus and lung; Z80.8 Family history of malignant neoplasm of other organs or systems; Z79.82 Long term (current) use of aspirin; Z79.899 Other long term (current) drug therapy; Z88.0 Allergy status to penicillin; Z88.5 Allergy status to narcotic agent; Z88.8 Allergy status to other drugs, medicaments and biological substances; Z87.891 Personal history of nicotine dependence; Z99.81 Dependence on supplemental oxygen; Z87.442 Personal history of urinary calculi; Z90.49 Acquired absence of other specified parts of digestive tract; Z90.710 Acquired absence of both cervix and uterus; Z90.89 Acquired absence of other organs; Z96.652 Presence of left artificial knee joint
CPT/HCPCS: 36415; 74022; 80048; 80053; 80069; 82947; 83735; 84132; 85025; 85027; 88307; 94760; 94762; A9270; J0690; J1171; J1644; J1650; J2405; J2470; J2765; J3010; J3480; J7030; J7050; J7060; J7120

== ENCOUNTER → 2025-01-04 | Outpatient (CLI) | payer OTHER ==
[~2025-01-04] MED LIST changes: +DOCU100 PO; +LOSA25 PO; +OXAYDO5 M2 PO
== END ==
LOC: LAB SHORT 18:57 → LAB 18:57
DX: N39.0 Urinary tract infection, site not specified (principal)
CPT/HCPCS: 87077; 87086; 87186

== ENCOUNTER → 2025-01-09 | Outpatient (CLI) | payer OTHER ==
[2025-01-09 19:33] LABS: Bacterial Vaginosis PCR Negative (NEGATIVE)
[2025-01-09 19:44] LABS: Candida Group, PCR DETECTED (NOT DETECT); Candida glabrata-krusei, PCR DETECTED (NOT DETECT)
== END ==
LOC: LAB 15:00 → LAB SHORT 15:00
PROVIDERS: Family Medicine
DX: B37.31 Acute candidiasis of vulva and vagina (principal); R30.0 Dysuria
CPT/HCPCS: 81515; 87086

== ENCOUNTER → 2025-02-08 | Outpatient (CLI) | payer OTHER | LOC: LAB 18:34 → LAB SHORT 18:34 | DX: N39.0 Urinary tract infection, site not specified (principal) | CPT/HCPCS: 87077; 87086; 87186 ==